=== PATIENT | female | born 1945 | race Caucasian/White ===

== ENCOUNTER → 2016-07-08 | Day surgery (SDC) | payer MEDICARE, OTHER ==
[~2016-07-08] MED LIST: ACETAMINOPHEN 1000 MG/100 ML VIAL IV ONE; ACETAMINOPHEN/HYDROcodone 325 MG/5 MG TAB ONE; ALEN100T2 PO; ALEN1TAB48 PO; CALCTAB80 PO; DICL75TA PO; GABA600T PO; HYDR-3516 PO; HYDROCORTISONE SOD SUCCINATE 100 MG VIAL ONE; ISOSULFAN BLUE 50 MG/5 ML VIAL SQ ONE; KETO10 PO; LACTATED RINGER'S 1000 ML INJ 1,000 ML ONE; LIDOCAINE 1%/EPINEPHrine 1:100,000 SOLN 20 ML VIAL ONE; LOSA25TA PO; MIDAZOLAM HCL 2 MG/2 ML VIAL ONE; ONDANSETRON HCL 4 MG/2 ML VIAL IV PUSH ONE; PROPOFOL 200 MG/20 ML AMP IV ONE; SODIUM CHLOR 0.9% 250 ML BAG IV ONE; VANCOMYCIN HCL 1000 MG VIAL ONE; ceFAZolin INJ 1,000 MG VIAL ONE
--- NOTE | 2016-07-14 15:59 | MP ---
cc: MANDO TURNER M.D., GEORGE P. M.D. ALEXANDER, CHRISTOPHER L. [facility], DATE OF SURGERY 07/08/2016 PROCEDURE 1. Injection Lymphazurin blue dye. 2. Intraoperative localization and excision of sentinel lymph nodes right axilla x 4. 3. Right breast needle localized lumpectomy. PREOPERATIVE DIAGNOSIS DCIS right breast. POSTOPERATIVE DIAGNOSIS DCIS right breast. ANESTHESIA LMA. SURGEON MD Kareem DEVULCANIZER LOADER TONY Gillis COMPLICATIONS None. DRAINS None. SPECIMEN [place] lymph nodes right axilla x 4, right axillary tissue and needle localization right breast lumpectomy specimen to pathology. NOTE The surgical procedure was assisted by the nurse practitioner. The ENDOSCOPY SUPPORT SPECIALIST's presence was necessary for appropriate retraction, dissection, visualization and resection of the important anatomical structures during the procedure. The ENDOSCOPY SUPPORT SPECIALIST assisted throughout the entirety of the operation from beginning to and through skin closure. The technical intern was passing and working instruments and thus the ENDOSCOPY SUPPORT SPECIALIST was directly assisting the operating surgeon as required. PROCEDURE The patient was taken to the Department of Nuclear Medicine where she underwent injection with technetium-99 sulfur colloid. She also underwent needle localization procedure where the patient's previously placed clip was noted. She was then taken back to the imaging department where further imaging by lymphoscintigraphy failed to identify any sentinel nodes. She was thus taken to the operating room and after time-out was taken confirming the correct patient, site and procedure to be performed, the breast was injected with Lymphazurin blue dye. The breast was gently compressed for a few minutes and then following this the breast was completely prepped and draped with the axilla. Further injection with local anesthetic was placed in the retroareolar and peritumoral region. The axilla was injected with local anesthetic as well and an incision made in the right axilla where activity above background was noted with the navigator probe. Dissection was carried down in the axilla to blue dye channels that were noted and well as the lymph nodes identified with the Navigator probe. A total of four lymph nodes were removed, two or blue without activity above background and two had both blue coloration and activity above background. All four nodes were submitted in one cup. The patient had some additional tissue that was dissected away from the nodes and this was submitted in a separate specimen cup for possible other orin tissues to be noted. The axilla was reexamined and with hemostasis assured, the wound was closed in two layers with interrupted 3-0 Vicryl suture and 5-0 PDS in a running subcuticular fashion. The axilla was toweled off and attention turned to the breast. A radial incision was made in the 7 o'clock position from just beyond the nipple-areolar complex down to the wire. The wire was cut at the skin and brought into the wound. A generous core of tissue was removed including the wire. The specimen was oriented with silk sutures and passed off the table and sent for specimen radiograph. An additional superficial margin was taken as the needle was slightly eccentrically located in the specimen. Specimen radiograph confirmed the micro clip to be present within the specimen. While awaiting radiologic confirmation, all bleeding was meticulously controlled with electrocautery. The remaining local anesthetic was placed into the cavity and the wound closed in two layers with interrupted 3-0 Vicryl suture and 5-0 PDS in a running subcuticular fashion. Both wounds were dressed with Steri-Strips. The patient was taken back to the recovery room in stable condition. Sponge, needle and instrument counts were reported be correct x 2. MD SYDNEE Anaya/ALEXIS /2:44 PM /3:48 PM
== END | disposition home or self-care (01) ==
LOC: ESDC 08:46
PROVIDERS: ATTEND Surgery Trauma Surgery
DX: D05.11 Intraductal carcinoma in situ of right breast (principal)
CPT/HCPCS: 00400; 01610; 19125; 38525; 38792; 88307; J0131; J0690; J1720; J2250; J2405; J3010; J3370; J7050; J7120; Q9968; 88305

== ENCOUNTER → 2016-12-01 | Outpatient (CLI) | payer MEDICARE, OTHER ==
[~2016-12-01] MED LIST changes: -ACETAMINOPHEN 1000 MG/100 ML VIAL IV ONE; -ACETAMINOPHEN/HYDROcodone 325 MG/5 MG TAB ONE; -HYDROCORTISONE SOD SUCCINATE 100 MG VIAL ONE; -ISOSULFAN BLUE 50 MG/5 ML VIAL SQ ONE; -LACTATED RINGER'S 1000 ML INJ 1,000 ML ONE; -LIDOCAINE 1%/EPINEPHrine 1:100,000 SOLN 20 ML VIAL ONE; -MIDAZOLAM HCL 2 MG/2 ML VIAL ONE; -ONDANSETRON HCL 4 MG/2 ML VIAL IV PUSH ONE; -PROPOFOL 200 MG/20 ML AMP IV ONE; -SODIUM CHLOR 0.9% 250 ML BAG IV ONE; -VANCOMYCIN HCL 1000 MG VIAL ONE; -ceFAZolin INJ 1,000 MG VIAL ONE
--- NOTE | 2016-12-01 11:37 | RADRPT ---
EXAM DATE/TIME: 12/01/2016 11:11 [facility] COMPARISON: No previous studies available for comparison. INDICATIONS : Pre-op left knee. Evaluate for pneumothorax, pneumonia, or communicable disease. MEDICAL HISTORY : None. SURGICAL HISTORY : Lumpectomy ENCOUNTER: Initial ACUITY: 1 day PAIN SCORE: 0/10 LOCATION: Bilateral chest FINDINGS: PA and lateral views of the chest demonstrate the lungs to be symmetrically aerated without evidence of mass, infiltrate or effusion. The cardiomediastinal contours are unremarkable. Osseous structure s are intact. CONCLUSION: No acute disease. David Shell MD on December 01, 2016 at 11:35 Board Certified Radiologist. This report was verified electronically.
[2016-12-01 12:01] LABS: INTERNATIONAL NORMALIZED RATIO 0.9 RATIO; PROTHROMBIN TIME - PATIENT 10.2 SEC (9.8-11.6)
[2016-12-01 12:05] LABS: BACTERIA, URINE RARE /hpf; BLOOD, URINE NEG (NEG); COMMENT (UR) CULT NOT INDICATED; CULTURE IF INDICATED CULT NOT INDICATED; GLUCOSE,URINE NEG (NEG); KETONE, URINE NEG (NEG); NITRITE,URINE NEG (NEG); SQUAMOUS EPITHELIAL CELL URINE 1 /hpf (0-5); URINE COLOR LIGHT-YELLOW (YELLW/STRAW)
[2016-12-01 12:21] LABS: POTASSIUM 3.9 MEQ/L (3.5-5.1)
--- NOTE | 2016-12-01 18:20 | EKG ---
Date Performed: 12/01/2016 Time Performed: 10:35:48 PTAGE: 70 years EKG: Sinus rhythm NONSPECIFIC T-WAVE ABNORMALITY BORDERLINE ECG NO PREVIOUS TRACING DOCTOR: Octavio Swartz Interpretating Date/Time 12/01/2016 18:19:27
== END ==
LOC: CPRE 10:05
PROVIDERS: ATTEND Orthopaedic Surgery
DX: Z01.812 Encounter for preprocedural laboratory examination (principal); Z01.811 Encounter for preprocedural respiratory examination; Z01.810 Encounter for preprocedural cardiovascular examination; S83.242D Other tear of medial meniscus, current injury, left knee, subsequent encounter; R94.31 Abnormal electrocardiogram [ECG] [EKG]; X58.XXXD Exposure to other specified factors, subsequent encounter
CPT/HCPCS: 36415; 71020; 80048; 81001; 85610; 93005

== ENCOUNTER → 2016-12-04 | Day surgery (SDC) | payer MEDICARE, OTHER ==
--- NOTE | 2016-11-30 17:40 | MH ---
cc: JULIANNADEMETRIUSHERI DATE OF ADMISSION 12/04/2016 ADMISSION DIAGNOSIS Anterior cruciate ligament tear left knee, medial and lateral tibial plateau fracture left knee, medial meniscus tear left knee, chondromalacia patellae left knee, effusion left knee, synovitis left knee, popliteal cyst left knee, pain left knee. HISTORY OF THE PRESENT ILLNESS The patient is a 70-year-old white female who has experienced pain of her left knee of almost one year duration. In December this past year she fell on her porch at home while she was living in the [place], [place] area. She did not seek any evaluation or treatment at that time and was able to rise independently being aware of generalized soreness for which she applied ice and utilize Lodine that she had available. In January of that year she and traveled from [place] to [place] and during the process of unloading packed items she fell again along her walkway with additional injury of her left knee occurring and lingering soreness being noted, especially along the medial aspect of her knee. She continued with conservative modalities being unaware of any significant swelling. She did report that she had undergone previous arthroscopic surgery of her left knee in approximately 2008 for was noted to have been a meniscal type tear with an uneventful recovery described. She presented to the undersigned physician in March of this past year and at that time x-ray studies were without evidence of acute bony abnormality. The patient was diagnosed as having a synovitis of her knee for which she was initiated into a course of physical therapy and prescribed diclofenac for ongoing management. She was thereafter followed on an outpatient basis. Initially she felt that she was experiencing some trend of improvement with therapy intervention, although unable to describe complete resolution of soreness about the knee. She was unable to tolerate diclofenac because of a generalized aching sensation about both lower extremities similar in nature to what she had noted in the past while she was taking Fosamax. She was subsequently treated with a steroid injection and again continued to be monitored from an outpatient standpoint. She did subsequently undergo an MRI scan evaluation of her left knee. The results of which identified a ruptured anterior cruciate ligament and a comminuted slightly depressed fracture involving the posterior aspect of the medial and lateral tibial plateau. No displaced fracture components were noted. There was a radial tear involving the posterior horn of the medial meniscus and mild to moderate chondromalacia patellae associated with a joint effusion, moderate synovitis and a small to moderate popliteal cyst. These findings were reviewed with the patient and treatment options discussed thereafter. The pros and cons of continuing with conservative modalities versus arthroscopic surgery were outlined. Emphasis was made regarding the fact that the decision to proceed with surgery would be left entirely to the patient's discretion. At that time the patient advised that she was scheduled undergo excision of a cyst of her breast and elected to continue with conservative management until treatment in this regard had been completed. She returned to the office in the more recent past indicating that she did undergo a lumpectomy of her right breast and subsequent to that treatment there was an apparent recommendation for further treatment including radiation therapy but the patient declined. She had noted lingering soreness about her left knee for which he had indicated her desire to proceed with further disposition. Once again the involvement of arthroscopic surgery was outlined for which the patient indicated her full understanding and expressed her desire to proceed accordingly. In compliance with her wishes she has currently been scheduled for admission in order that the above be accomplished. PAST MEDICAL HISTORY Her past medical history, hospitalizations and surgeries have included: 1. Arthroscopic surgery of both knees. 2. section. 3. Some type of vascular procedure about the groin area for valvular insufficiency. 4. Tonsillectomy. 5. Appendectomy. 6. Abdominal hysterectomy with left oophorectomy. 7. Bilateral cataract excision with intraocular lens implants. 8. Colonoscopy. 9. And lumpectomy of the right breast as described. The patient's medical illnesses include: Hypertension for which she has taken losartan in the past and continues to take it currently 25 mg daily. MEDICATIONS Additional medications include: 1. Calcium with vitamin D. 2. Alendronate that was recently started for bone density but it is associated with some degree of GI irritation. ALLERGIES THE PATIENT INDICATES A DRUG ALLERGY TO ERYTHROMYCIN WHICH HAS ALSO CAUSED GASTRIC IRRITATION. SHE HAS ENVIRONMENTAL ALLERGIES TO GRASS AND WEEDS. REVIEW OF SYSTEMS She does wear contact lenses. Has a history of headaches in the past. No seizure or syncope. Occasional sinus congestion as related to environmental irritants. No epistaxis. Diminished auditory acuity. Complete upper and partial lower dentures. No dysphagia. Denies cough, shortness of breath, upper respiratory infection, pneumonia or tuberculosis. No angina or heart disease. She is medically managed for hypertension. Her appetite is good. Bowel movements are regular. No hepatitis, gallbladder disease, ulcers or hemorrhoids. No urinary tract infection. No kidney stones. History of fracture of the toes bilaterally. No psychiatric illness. Her remaining review of systems is unremarkable and noncontributory. FAMILY HISTORY The patient has been 30 years, this being a second marriage. Her is 70 years of age. He has a history of PTSD. She has four sons and three daughters all indicated to be in good health. Family history is otherwise positive for heart disease, tuberculosis, dementia and breast cancer. SOCIAL HISTORY The patient completed a high school education. 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 She denies active use of tobacco for at least 40 years but had been approximately a one-pack per day user for 8 years prior to that time. Ethanol consumption on a limited social basis. PHYSICAL EXAMINATION Height 5 feet 4 inches, weight 129 pounds. GENERAL: An alert, oriented, responsive 70-year-old white female who sits quietly upon examination table with no obvious distress. HEAD, EARS, EYES, NOSE, AND THROAT: Pupils are equally round and reactive to light. Extraocular movements full. Sclerae clear. External nares clear. External auditory canals clear. Edentulous in the maxillary distribution. Semi edentulous in the mandibular distribution. Mucous membranes pink and moist. Pharynx is clear. NECK: Supple. Active range of motion with mild discomfort at the extremes of mobility indicated to be chronic in nature. Carotid pulse palpable bilaterally. Trachea midline. Thyroid without enlargement. LUNGS: Clear to auscultation and percussion. No CVA tenderness. No discomfort throughout the dorsal lumbar spine. HEART: Regular rhythm. No murmur or gallop. ABDOMEN: Soft. Nontender. Bowel sounds are present. PELVIC: Per primary care physician. EXTREMITIES: Left knee, no significant swelling or effusion. Slight medial joint line tenderness without palpable deformity. Minimal discomfort within the popliteal region. Apprehension and compression sign negative. Slight limitation of mobility towards the extremes of flexion without associated crepitation. No collateral ligamentous instability. Claudio test and drawer sign negative. Pivot shift and Brennen sign minimally positive for medial compartment pain. Straight-leg raising unremarkable at 80 degrees. Independent gait. NEUROLOGIC: Cranial nerves II-XII grossly intact. IMPRESSION Anterior cruciate ligament tear left knee, medial and lateral tibial plateau fractures left knee, medial meniscus tear left knee, chondromalacia patellae left knee, effusion left knee, synovitis left knee, popliteal cyst left knee and pain of the left knee. PLAN Arthroscopic surgery and possible arthrotomy left knee. The nature of the planned surgical procedure, the potential complications and risks associated, the expectations of surgery and the consent form were thoroughly reviewed with the patient prior to admission to the hospital. Julisa has indicated her full understanding regarding all of the above and given consent to proceed with treatment as outlined. Medical evaluation and clearance for surgery will be completed by her primary care physician Dr. Sarabjit De Los Santos. MD JAIRON Romero/KK /4:39 PM /5:12 PM
[~2016-12-04] VITALS: Ht 161.3 cm; Wt 58.8 kg
[~2016-12-04] MED LIST changes: +ACETAMINOPHEN 1000 MG/100 ML VIAL IV ONE; +ACETAMINOPHEN/HYDROcodone 325 MG/5 MG TAB PO PRN; +CHLORHEXIDINE GLUCONATE 2 % 1 PACK (2 CLOTHS) TOPICAL PRN; +DEXAMETHASONE SOD PHOS 4 MG/ML VIAL ONE; +DO NOT ADM ANY ANTICOAGULANT DRUGS PRN; +INSULIN HUMAN REGULAR 1,000 UNITS/10 ML VIAL SQ PRN; +KETOROLAC TROMETHAMINE 60 MG/2 ML (IM) VIAL IM ONE; +LACTATED RINGER'S 1000 ML IV PRN; +LIDOCAINE HCL 2% PF SOLN 10 ML VIAL ONE; +METOPROLOL TARTRATE 25 MG TAB PO PRN; +MIDAZOLAM HCL 2 MG/2 ML VIAL ONE; +MORPHINE SULFATE 8 MG/ML INJ IM PRN; +ONDANSETRON HCL 4 MG/2 ML VIAL IV PUSH ONE; +POVIDONE IODINE 5% (ANTISEPSIS KIT) 4 APPLICATIONS EACH NARE PRN; +POVIDONE IODINE 7.5% SCRUB 118 ML BOTTLE TOPICAL SCH; +PROPOFOL 200 MG/20 ML AMP IV ONE; +SODIUM CHLORID 0.9% 500 ML IV PRN; +TRIAMCINOLONE ACETONIDE 40 MG/ML VIAL ONE; +[UNRECOGNIZED DRUG - REMARK] IM PRN; +ceFAZolin 2 GM PREMIX 50 ML IV SCH; +ePHEDrine/NS 25 MG/5 ML SYR IV ONE; +fentaNYL CITRATE 250 MCG/5 ML AMP ONE
[2016-12-04 06:36] VITALS: BP 125/69; PULSE 73; RESP 16; TEMP 97.8; O2SAT 100
[2016-12-04 09:48] VITALS: BP 112/61; PULSE 63; RESP 16; O2SAT 97
[2016-12-04 10:30] VITALS: TEMP 97.4
--- NOTE | 2016-12-06 07:03 | MP ---
cc: HERI KIMBROUGH DATE OF SURGERY: 04 December 2016 PREOPERATIVE DIAGNOSIS Anterior cruciate ligament tear left knee, medial and lateral tibial plateau fracture left knee, medial meniscus tear left knee, chondromalacia patellae left knee, effusion left knee, synovitis left knee, popliteal cyst left knee, pain left knee. POSTOPERATIVE DIAGNOSIS Anterior cruciate ligament tear left knee, medial and lateral tibial plateau fracture left knee, medial meniscus tear left knee, chondromalacia patellae left knee, effusion left knee, synovitis left knee, popliteal cyst left knee, pain left knee. Synovial plica left knee. PROCEDURE: Partial medial meniscectomy left knee, resection of synovial plica left knee, and debridement of anterior cruciate ligament tear left knee. SURGEON Heri Kimbrough M.D. ANESTHESIA General by LMA. FORMAT Following the induction of satisfactory general anesthesia by LMA insertion as completed per the Department of Anesthesia examination of the left knee revealed a satisfactory range of motion with no appreciable ligamentous instability. Claudio test and drawer sign were negative as was pivot shift. The extremity proper was positioned into the surgical coordinator knee mann prepped with Betadine solution and draped into a sterile field in the routine manner. Prior to initiation of the actual procedure the standard time-out protocol was completed, all parameters were appropriately addressed and confirmed by operating room personnel. Arthroscopic instrumentation was introduced through stab wound utilizing cannula with sharp and blunt trocar, the inflow irrigation by way of a medial suprapatellar portal, the arthroscope through a lateral parapatellar portal and a probe through a medial parapatellar portal. Examination of the suprapatellar pouch revealed a prominent synovial plica extending throughout the medial aspect of the suprapatellar region. Localized degenerative change of the patellofemoral articulation was appreciated consistent with chondromalacia patellae. Within the medial compartment a degenerative tear of the posterior horn of the medial meniscus was identified. The adjacent articular surfaces of the femoral condyle and tibial plateau appeared to be preserved. There was significant fraying of the anterior cruciate ligament within the intercondylar region consistent with a preoperative diagnosis of a disruption of the structure. Examination of the lateral compartment revealed continuity of the articular surfaces. No distinct meniscal abnormality was appreciated. Attention was initially redirected to the medial compartment utilizing a 3.8 full radius resector. A partial medial meniscectomy was accomplished. Thereafter a generalized debridement of the frayed portion of the anterior cruciate ligament was completed, the shaver was thereafter oriented into the suprapatellar pouch and the previously identified synovial plica was resected. A limited debridement was completed about the patellofemoral joint. Upon completion of same the joint space was thoroughly lavaged and the suction dry. An intra-articular Kenalog lidocaine injection was completed, portal sites were reapproximated with Steri-Strips over which Xeroform gauze and a bulky dry sterile dressing were placed. Anesthesia was discontinued and the patient thus transferred to a hospital stretcher and returned to the recovery room in satisfactory condition having tolerated her operative procedure well. Estimated blood loss was less than 10 cc. Heri Kimbrough MD [facility]/[place] /8:44 AM /6:57 AM
== END | disposition home or self-care (01) ==
LOC: HSDC 05:44
PROVIDERS: ATTEND Orthopaedic Surgery
DX: M23.222 Derangement of posterior horn of medial meniscus due to old tear or injury, left knee (principal); M23.612 Other spontaneous disruption of anterior cruciate ligament of left knee; M22.42 Chondromalacia patellae, left knee; M25.462 Effusion, left knee; M65.862 Other synovitis and tenosynovitis, left lower leg; M67.52 Plica syndrome, left knee; M71.22 Synovial cyst of popliteal space [Baker], left knee; I10 Essential (primary) hypertension; E78.5 Hyperlipidemia, unspecified; Z88.1 Allergy status to other antibiotic agents; Z91.09 Other allergy status, other than to drugs and biological substances; Z87.891 Personal history of nicotine dependence
CPT/HCPCS: 29881; J0131; J0690; J1100; J1885; J2250; J2405; J3010; J3301; J7120